=== PATIENT | female | born 1955 | race Caucasian/White ===

== ENCOUNTER 2019-03-16 12:50 | Outpatient (CLI) ==
--- NOTE | 2019-03-18 10:16 | MAMMO ---
EXAM: Bilateral digital screening mammogram (2-D and 3-D) History: Screening Comparison: None available. Findings: MLO and CC views of bilateral breasts demonstrate scattered fibroglandular breast parenchy ma. CAD was reviewed by the radiologist. Tomosynthesis was performed. Benign appearing bilateral b reast nodular densities. Benign left breast calcifications. Benign bilateral axillary lymph nodes. There are no suspicious masses and no microcalcifications. Impression: Benign mammogram. Recommend followup routine screening mammography in 1 year. BIRADS 2, benign
== END 2019-03-16 12:51 | disposition home or self-care (01) ==
LOC: RAD 12:50
PROVIDERS: ATTEND Nurse Practitioner Family
DX: Z12.31 Encounter for screening mammogram for malignant neoplasm of breast (principal)